=== PATIENT | male | born 1965 | race Caucasian/White ===

== ENCOUNTER 2020-04-16 16:51 | Emergency (ER) | payer OTHER, MEDICAID ==
--- NOTE | 2020-04-16 17:33 | CT ---
EXAMINATION: Cervical Spine wo Cont SEX: Male AGE: 54 years CLINICAL HISTORY: 54-year-old male injury. Fell off 18" stool struck back of head on concrete floor. Scan technique: Volume acquisition of data emergency unenhanced CT scan of the cervical spine and neck obtained with patient lying supine on the Siemens multi slice scanner [place], [place]. All data archived in the PACS system for storage, reformatting axial/sagittal/coronal planes and study (bone/soft tissue windows). Interpretation: 1. Generally good bone mineral density for age and gender but signs of chronic multilevel mid and lower cervical disc disease i.e. interspace narrowing endplate sclerosis and hypertrophic marginal spondylosis C3-4 C4-5 and particularly C5-C6 levels (some involvement C6-7). 2. No sign of prevertebral soft tissue swelling, acute cervical fracture, spondylolisthesis or jumped locked facets. 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 No cervical fracture or dislocation.
--- NOTE | 2020-04-16 17:37 | CT ---
EXAMINATION: Head wo Cont SEX: Male AGE: 54 years CLINICAL HISTORY: 54-year-old male injured (Fell off 18" stool, struck back of head on concrete floor and loss of consciousness with subsequent confusion). Scan technique: Volume acquisition of data from the head and brain obtained with the patient was lying supine on the Siemens multislice scanner [facility]. All data archived in the PACS system for storage, reformatting axial/sagittal/coronal planes and study (bone/soft tissue windows). Interpretation: Asymmetric large scalp hematoma posterior laterally over the convexity on the right. Uniformly thick bony calvarium without sign of skull fracture, underlying brain contusion or abnormal extracerebral/intracranial epidural or subdural hematoma. Symmetric soto-white matter pattern and underlying mirror-image normal ventricular system. Physiologic midline pineal and symmetric choroid plexus calcifications. No hydrocephalus. No supratentorial or posterior fossa mass lesion. Cerebellum and brainstem unremarkable. No ischemic infarct or signs of encephalomalacia. No sign of acute intracerebral, intraventricular or subarachnoid bleed. CONCLUSION: Extracranial scalp hematoma. No sign of skull fracture or closed head injury. INTERPRETATION: 1. CONCLUSION:
[2020-04-16] MEDS ORDERED: Lidocaine 1% with EPINEPHrine 1:100,000 20 ML MDV ONE (17:58)
[2020-04-16] MEDS: Lidocaine 1% with EPINEPHrine 1:100,000 20 ML MDV INFILT ONE (18:35)
[2020-04-16] MEDS: Bacitracin Oint 1 GM U/D Packet TOP ONE (18:35)
[2020-04-16] MEDS: Bupivacaine 0.25%/EPINEPHrine 1:200,000 30 ML SDV INFILT ONE (18:35)
[2020-04-16] MEDS: Lidocaine 1% with EPINEPHrine 1:100,000 20 ML MDV ONE (18:36)
--- NOTE | 2020-04-16 18:39 | EDM.PDOC ---
Scribed by Nina Perez 04/16/20 [id number] for Lamin Granados MD ED HPI GENERAL MEDICAL PROBLEM - General Chief Complaint: Head Injury Stated Complaint: AMBULANCE Time Seen by Provider: 04/16/20 16:54 Source of Information: Reports: Patient, EMS, EMS Notes Reviewed, RN, RN Notes Reviewed History Limitations: Reports: No Limitations - History of Present Illness INITIAL COMMENTS - FREE TEXT/NARRATIVE: Patient arrives by [facility] from work after he fell 18 inches off a stool and struck the back of his head on concrete floor. Patient believes that he had a brief loss of consciousness, but witnesses do not believe he did. Patient initially has nausea, confusion and reverberation. On arrival to ER his confusion had resolved. Denies neck pain or any other injury. He does not take blood thinners. Tetanus vaccine 2 yrs ago per pt. Denies cough , chest pain, shortness of breath, sore throat, runny nose, recent travel, or any exposures to confirmed or suspected Covid-19 cases. Onset: Today Duration: Constant Location: Reports: Head Quality: Reports: Ache Severity: Severe Improves with: Reports: None Worsens with: Reports: None Associated Symptoms: Reports: No Other Symptoms Head Pain Score (Numeric/FACES): 7 - Related Data Allergies Allergy/AdvReac Type Severity Reaction Status Date / Time No Known Allergies Allergy Verified 04/16/20 17:00 Home Meds: Home Meds clonazePAM [Clonazepam] 0.5 mg PO DAILY 04/16/20 [History] Past Medical History Psychiatric History: Reports: Anxiety Social & Family History - Family History Family Medical History: Noncontributory - Living Situation & Occupation Living situation: Reports: with Family Occupation: Employed ED ROS GENERAL - Review of Systems Review Of Systems: Comprehensive ROS is negative, except as noted in HPI. ED EXAM, HEAD INJURY - Physical Exam Exam: See Below Exam Limited By: No Limitations General Appearance: Alert, WD/WN, No Apparent Distress Head: Normocephalic, Scalp Lacerations (occipital), Scalp Swelling, Scalp Hematoma, Scalp Tenderness, Other (4cm irregular, stellate laceration to depth of deep subcutaneous tissue at Rt occipital scalp). No: Curran's Sign, Flap Nexus Criteria: No: Posterior, Midline Cervical Tenderness, Evidence of Intoxication, Altered Level of Consciousness, Focal Neurological Deficit, Painful Distraction Injuries Eyes: Bilateral Eye: EOMI, Normal Inspection, PERRL Ears: Normal External Exam, Normal Canal, Hearing Grossly Normal, Normal TMs Nose: Normal Inspection, Normal Mucousa, No Blood Throat/Mouth: Normal Inspection, Normal Lips, Normal Teeth, Normal Gums, Normal Oropharynx, Normal Voice, No Airway Compromise Neck: Non-Tender, Full Range of Motion, Normal Alignment, Normal Inspection Respiratory: No Respiratory Distress, Lungs Clear, Normal Breath Sounds, No Accessory Muscle Use, Chest Non-Tender Cardiovascular: Normal Peripheral Pulses, Regular Rate, Rhythm, No Edema, No Gallop, No JVD, No Murmur, No Rub GI/Abdominal Exam: Normal Bowel Sounds, Soft, Non-Tender, No Organomegaly, No Distention, No Abnormal Bruit, No Mass (Male) Exam: Deferred Rectal (Males) Exam: Deferred Back Exam: Full Range of Motion, Normal Inspection, NT Extremities: Normal Inspection, Normal Range of Motion, Non-Tender, No Pedal Edema, Normal Capillary Refill Neurologic: photovoltaic technician II-XII nml As Tested, No Motor/Sensory Deficits, Alert, Normal Mood/Affect, Oriented x 3 - Phoenix Coma Score Best Eye Response (Shay): (4) Open Spontaneously Best Verbal Response (Shay): (4) Confused Conversation Best Motor Response (Shay): (6) Obeys Commands [place] Total: 14 (on arrival, GCS [address]) ED LACERATION/WOUND & WILEY PROC - Laceration/Wound Repair Right Posterior Head Lac/wound length in cm: 4 Appearance: Stellate, Irregular, Clean Distal NVT: Neuro & Vascular Intact Anesthetic Type: Local Local Anesthesia - Lidocaine (Xylocaine): 1% with EPI Local Anesthetic Volume: Other (20) Skin Prep: Chlorhexidine (Hibiciens), Saline, Sterile Drape Saline irrigation (cc's): 1,000 Exploration/Debridement/Repair: Wound Explored, In a Bloodless Field, Explored to Base, Moderate Debridement, Moderately Undermined, No Foreign Material Found Closed with: Sutures Suture Size: 2-0 Suture Type: Nylon, Interrupted Drain Placement: No Sterile Dressing Applied: Nurse Tetanus Status Addressed: Yes Complications: No Course - Vital Signs Last Recorded V/S: Last Vital Signs Temp 98 F 04/16/20 17:02 Pulse 70 04/16/20 17:02 Resp 20 04/16/20 17:02 BP 137/80 04/16/20 17:02 Pulse Ox 99 04/16/20 17:02 - Orders/Labs/Meds Meds: Medications Discontinued Medications Generic Name Dose Route Start Last Admin Trade Name Carla PRN Reason Stop Dose Admin Bacitracin 1 dose 04/16/20 17:52 Bacitracin Oint 1 Gm TOP 04/16/20 17:53 ONETIME ONE Bupivacaine HCl/Epinephrine Bitart 30 ml 04/16/20 17:51 Marcaine 0.25%/Epinephrine 1:200,000 INFILT 04/16/20 17:52 ONETIME ONE Lidocaine/Epinephrine 20 ml 04/16/20 17:50 Xylocaine 1% With Epinephrine 1:100,000 INFILT 04/16/20 17:51 ONETIME ONE Lidocaine/Epinephrine Confirm 04/16/20 17:55 Xylocaine 1% With Epinephrine 1:100,000 Administered 04/16/20 17:56 Dose 20 ml .ROUTE .STK-MED ONE Lidocaine/Epinephrine Confirm 04/16/20 17:58 Xylocaine 1% With Epinephrine 1:100,000 Administered 04/16/20 17:59 Dose 20 ml .ROUTE .STK-MED ONE - Radiology Interpretation Free Text/Narrative:: CT cervical spine: 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 No cervical fracture or dislocation. See rad report. Head CT: Extracranial scalp hematoma. No sign of skull fracture or closed head injury. See rad report. Departure - Departure Time of Disposition: 18:35 Disposition: Home, Self-Care 01 Condition: Good Clinical Impression: Concussion injury of brain, Scalp laceration, Fall involving stool as cause of accidental injury - Discharge Information *PRESCRIPTION DRUG MONITORING PROGRAM REVIEWED*: Not Applicable *COPY OF PRESCRIPTION DRUG MONITORING REPORT IN PATIENT SHELBY: Not Applicable Instructions: Concussion, Adult, Facial or Scalp Contusion, [id number] Forms: ED Department Discharge Additional Instructions: Concussion activity precautions for 2 weeks: no rough activity, sports, bouncing /jarring, running, or physical exertion. No alcohol, no medications or supplements that may cause drowsiness. Ice pack to area of head injury as needed. Use Tylenol or Ibuprofen as needed for pain. Follow directions on label for dosing and precautions. Follow up in clinic for suture removal in 7 to 10 days. Return to ER if any emergent concerns develop. Sepsis Event Note - Focused Exam Vital Signs: Vital Signs Temp Pulse Resp BP Pulse Ox 04/16/20 17:02 98 F 70 20 137/80 99 Date Exam was Performed: 04/16/20 Time Exam was Performed: 18:31 I have read and agree with the documentation that has been completed regarding this visit. By signing this record, I attest that the documentation was completed in my physical presence and is an accurate record of the encounter.
== END 2020-04-16 18:46 | disposition home or self-care (01) ==
LOC: DL.ED 16:51
DX: S06.0X9A Concussion with loss of consciousness of unspecified duration, initial encounter (principal); S01.01XA Laceration without foreign body of scalp, initial encounter; F41.9 Anxiety disorder, unspecified; Z79.899 Other long term (current) drug therapy; W08.XXXA Fall from other furniture, initial encounter; Y99.0 Civilian activity done for income or pay
CPT/HCPCS: 12002; 70450; 72125; 99284-25

== ENCOUNTER 2023-08-07 16:34 | Emergency (ER) | payer BC, MEDICAID, OTHER ==
[2023-08-07] MEDS ORDERED: Lidocaine 2% with EPINEPHrine 1:200,000 20 ML SDV INJECT ONE (17:11)
[2023-08-07] MEDS ORDERED: Bacitracin Oint 1 GM U/D Packet TOP ONE (17:34)
== END 2023-08-07 17:45 | disposition home or self-care (01) ==
LOC: DL.ED 16:34
DX: S61.211A Laceration without foreign body of left index finger without damage to nail, initial encounter (principal); Z79.899 Other long term (current) drug therapy; W26.8XXA Contact with other sharp object(s), not elsewhere classified, initial encounter
CPT/HCPCS: 12001; 99282; A9270-GY; J3490